=== PATIENT | female | born 1970 | race Caucasian/White ===

== ENCOUNTER 2017-03-05 23:45 | Inpatient (IN) | payer MEDICAID ==
[~2017-03-05] VITALS: Ht 154.9 cm; Wt 72.6 kg
[~2017-03-05 23:45] MED LIST: APRESOLINE50 MG PO; BENADRYL ALLERG25 M1 PO; CARVEDILOL6.25 M1 PO; HUMALOG100 U/ML; LASIX40 MG; MINOXIDIL2.5 MG PO; NEPHRO-VITE VITA1 EA PO; NOVOLIN R100 U/ML; SODIUM BICARBO650 MG PO; TESSALON PERLE100 MG PO; TOPROL XL25 MG PO; VIT B-6100 M1 PO; VYVANSE40 MG PO; ZOLPIDEM TARTRAT5 MG PO
[2017-03-06] VITALS (9 sets, daily range): BP systolic 134–178; BP diastolic 60–75
[2017-03-06] MEDS ORDERED: NEU300 PO (01:48)
[2017-03-06] MEDS ORDERED: NOR10 PO (01:49)
[2017-03-06] MEDS ORDERED: PHOSLO667 MG PO (01:49)
[2017-03-06] MEDS ORDERED: HYDRALAZINE HCL25 MG PO (01:49)
[2017-03-06] MEDS ORDERED: LIPI20 PO (01:49)
[2017-03-06] MEDS ORDERED: LISINOPRIL40 MG PO (01:50)
[2017-03-06] MEDS ORDERED: LASIX40 MG PO (01:50)
[2017-03-06] MEDS ORDERED: NEPHRO-VITE VITA1 EA PO (01:51)
[2017-03-06] MEDS ORDERED: OMEPRAZOLE40 M1 PO (01:51)
[2017-03-06 02:43] LABS: PLATELET COUNT 254 x10^3mcL (130-400)
[2017-03-06 02:44] LABS: BASOPHIL % 2.1 % (0-2)
[2017-03-06 02:56] LABS: BILIRUBIN TOTAL 0.28 mg/dL (0.20-1.00); CALCIUM 9.2 mg/dL (8.5-10.1); CARBON DIOXIDE 27.4 mmol/L (21-32); POTASSIUM SERUM 4.1 mmol/L (3.5-5.1)
[2017-03-06 02:58] LABS: ALBUMIN 3.2 g/dL (3.4-5.0); CHOLESTEROL/HDL RATIO 3.4; MAGNESIUM 2.5 mg/dL (1.8-2.4); PHOSPHOROUS 3.7 mg/dL (2.5-4.9); TOTAL PROTEIN, SERUM 9.6 g/dL (6.4-8.2)
[2017-03-06 02:59] LABS: CREATININE SERUM 4.8 mg/dL (0.6-1.0)
[2017-03-06 03:08] LABS: T3 TOTAL 0.73 ng/mL
[2017-03-06 03:22] LABS: FREE THYROXINE INDEX 3.1 ug/dL (1.4-4.5)
[2017-03-06 03:55] LABS: FREE T4 1.02 ng/dL (0.76-1.46)
[2017-03-06 08:40] LABS: BASOPHIL % 0.4 % (0-2); PLATELET COUNT 229 x10^3mcL (130-400); RED CELL DISTRIBUTION WIDTH 15.4 % (11.5-14.5)
[2017-03-06 09:00] LABS: CALCIUM 8.8 mg/dL (8.5-10.1); CARBON DIOXIDE 28.8 mmol/L (21-32); MAGNESIUM 2.4 mg/dL (1.8-2.4); POTASSIUM SERUM 4.3 mmol/L (3.5-5.1)
[2017-03-07 05:44] VITALS: BP 126/55
[2017-03-07 06:49] LABS: BASOPHIL % 0.4 % (0-2); PLATELET COUNT 218 x10^3mcL (130-400)
[2017-03-07 07:05] LABS: RED CELL DISTRIBUTION WIDTH 15.1 % (11.5-14.5)
[2017-03-07 07:09] LABS: CALCIUM 8.3 mg/dL (8.5-10.1); CARBON DIOXIDE 28.7 mmol/L (21-32); CREATININE SERUM 3.8 mg/dL (0.6-1.0); POTASSIUM SERUM 3.8 mmol/L (3.5-5.1)
[2017-03-07 07:55] VITALS: BP 164/73
[2017-03-07 09:32] VITALS: BP 173/75
[2017-03-07 12:56] VITALS: BP 130/69
[2017-03-07 17:40] VITALS: BP 131/68
[2017-03-07 21:05] VITALS: BP 144/61
[2017-03-08 05:31] VITALS: BP 152/64
[2017-03-08 07:36] LABS: CALCIUM 7.9 mg/dL (8.5-10.1); CARBON DIOXIDE 25.6 mmol/L (21-32); POTASSIUM SERUM 3.9 mmol/L (3.5-5.1)
[2017-03-08 07:54] VITALS: BP 134/78
[2017-03-08 08:02] LABS: CREATININE SERUM 5.8 mg/dL (0.6-1.0)
[2017-03-08 13:58] VITALS: BP 141/76
[2017-03-08 17:08] VITALS: BP 148/62
[2017-03-08 21:36] VITALS: BP 146/83
[2017-03-09 05:50] VITALS: BP 157/68
[2017-03-09 07:13] LABS: CALCIUM 8.1 mg/dL (8.5-10.1); CARBON DIOXIDE 28.2 mmol/L (21-32); CREATININE SERUM 3.8 mg/dL (0.6-1.0); POTASSIUM SERUM 3.6 mmol/L (3.5-5.1)
[2017-03-09 09:20] VITALS: BP 122/56
[2017-03-09] MEDS ORDERED: TYL325 PO (14:14)
[2017-03-09 14:28] VITALS: BP 122/56
[2017-03-09 16:33] VITALS: BP 122/56
== END 2017-03-09 15:45 | disposition home or self-care (01) | DRG 82 ==
LOC: ED 23:45 → DU 03-06 02:20 → MU 03-09 00:06
PROVIDERS: Emergency Medicine; ADMIT Family Medicine
DX: E11.3593 Type 2 diabetes mellitus with proliferative diabetic retinopathy without macular edema, bilateral (principal); N17.0 Acute kidney failure with tubular necrosis; I12.0 Hypertensive chronic kidney disease with stage 5 chronic kidney disease or end stage renal disease; N18.6 End stage renal disease; D68.69 Other thrombophilia; E11.65 Type 2 diabetes mellitus with hyperglycemia; H33.22 Serous retinal detachment, left eye; E78.1 Pure hyperglyceridemia; E03.9 Hypothyroidism, unspecified; D63.1 Anemia in chronic kidney disease; R74.0 Nonspecific elevation of levels of transaminase and lactic acid dehydrogenase [LDH]; H54.8 Legal blindness, as defined in USA; F17.200 Nicotine dependence, unspecified, uncomplicated; Z68.30 Body mass index [BMI] 30.0-30.9, adult; Z86.73 Personal history of transient ischemic attack (TIA), and cerebral infarction without residual deficits; Z99.2 Dependence on renal dialysis; Z79.4 Long term (current) use of insulin
CPT/HCPCS: 82962; 83880; 84439; J1815; J2270; J2405; J7030; J7613; Q0092

== ENCOUNTER 2017-04-27 16:25 | Inpatient (IN) | payer MEDICAID ==
[~2017-04-27] VITALS: Ht 157.5 cm; Wt 68.9 kg
[~2017-04-27 16:25] MED LIST changes: +HYDRALAZINE HCL25 MG PO; +LASIX40 MG PO; +LIPI20 PO; +LISINOPRIL40 MG PO; +NEU300 PO; +NOR10 PO; +OMEPRAZOLE40 M1 PO; +PHOSLO667 MG PO; +TYL325 PO
[2017-04-27 18:47] LABS: BASOPHIL % 0.5 % (0-2); PLATELET COUNT 288 x10^3mcL (130-400)
[2017-04-27 19:04] LABS: ALBUMIN 3.5 g/dL (3.4-5.0); BILIRUBIN TOTAL 0.4 mg/dL (0.20-1.00); CARBON DIOXIDE 23.8 mmol/L (21-32); POTASSIUM SERUM 3.9 mmol/L (3.5-5.1)
[2017-04-27 19:08] LABS: TOTAL PROTEIN, SERUM 9.3 g/dL (6.4-8.2)
[2017-04-27 19:09] LABS: CREATININE SERUM 4.6 mg/dL (0.6-1.0)
[2017-04-27 19:14] LABS: RED CELL DISTRIBUTION WIDTH 15.6 % (11.5-14.5)
[2017-04-27] MEDS ORDERED: CARVEDILOL3.125 M1 PO (20:53)
[2017-04-27] MEDS ORDERED: TEGRETOL200 MG PO (20:53)
[2017-04-27] MEDS ORDERED: GLUCOTROL5 MG PO (20:54)
[2017-04-27 22:03] LABS: CHOLESTEROL/HDL RATIO 2.6; MAGNESIUM 2.3 mg/dL (1.8-2.4); PHOSPHOROUS 1.7 mg/dL (2.5-4.9)
[2017-04-27 22:11] LABS: T3 TOTAL 0.91 ng/mL
[2017-04-27 22:24] LABS: FREE T4 1.3 ng/dL (0.76-1.46); FREE THYROXINE INDEX 3.8 ug/dL (1.4-4.5); T4(THYROXINE) 10.6 ug/dL (4.7-13.3)
[2017-04-27 22:27] VITALS: BP 182/69
[2017-04-28 05:47] VITALS: BP 154/41
[2017-04-28 10:00] VITALS: BP 196/60
[2017-04-28 12:59] VITALS: BP 187/67
[2017-04-28 17:12] VITALS: BP 173/52
[2017-04-28 21:51] VITALS: BP 142/52
[2017-04-28 22:00] VITALS: BP 156/47
[2017-04-29 06:10] VITALS: BP 159/46
[2017-04-29 07:23] LABS: BASOPHIL % 0.3 % (0-2); PLATELET COUNT 255 x10^3mcL (130-400)
[2017-04-29 07:24] LABS: RED CELL DISTRIBUTION WIDTH 16.6 % (11.5-14.5)
[2017-04-29 07:38] LABS: CALCIUM 8.8 mg/dL (8.5-10.1); CARBON DIOXIDE 30.4 mmol/L (21-32); CREATININE SERUM 3.6 mg/dL (0.6-1.0); MAGNESIUM 1.8 mg/dL (1.8-2.4); POTASSIUM SERUM 3.5 mmol/L (3.5-5.1)
[2017-04-29 08:10] LABS: AMYLASE 217 U/L (25-115); LIPASE 1960 IU/L (73-393)
[2017-04-29 10:10] VITALS: BP 149/34
[2017-04-29 14:00] VITALS: BP 158/52
[2017-04-29 17:45] VITALS: BP 132/65
[2017-04-29 21:56] VITALS: BP 154/51
[2017-04-30 05:15] VITALS: BP 146/50
[2017-04-30 06:49] LABS: BASOPHIL % 0.4 % (0-2); PLATELET COUNT 219 x10^3mcL (130-400)
[2017-04-30 06:59] LABS: CALCIUM 7.7 mg/dL (8.5-10.1); CARBON DIOXIDE 27.9 mmol/L (21-32); MAGNESIUM 1.8 mg/dL (1.8-2.4); PHOSPHOROUS 4.6 mg/dL (2.5-4.9); POTASSIUM SERUM 3.7 mmol/L (3.5-5.1)
[2017-04-30 07:11] LABS: RED CELL DISTRIBUTION WIDTH 16.5 % (11.5-14.5)
[2017-04-30 10:58] VITALS: BP 136/59
[2017-04-30 15:10] VITALS: BP 159/67
[2017-04-30 17:39] VITALS: BP 161/60
[2017-04-30 21:25] VITALS: BP 153/72
[2017-04-30] MEDS ORDERED: BETIMOL5 M1 OD (22:08)
[2017-04-30] MEDS ORDERED: ALPHAGAN P5 M1 OS (22:08)
[2017-04-30] MEDS ORDERED: PREDNISOLONE ACE5 ML OS (22:11)
[2017-04-30] MEDS ORDERED: ISOPTO ATROPINE5 ML OD (22:11)
[2017-04-30] MEDS ORDERED: DORZOLAMIDE HYD10 ML OS (22:12)
[2017-04-30] MEDS ORDERED: BETIMOL5 M1 OS (22:14)
[2017-04-30] MEDS ORDERED: ISOPTO ATROPINE5 ML OS (22:15)
[2017-05-01 05:23] VITALS: BP 128/56
[2017-05-01 07:30] LABS: BASOPHIL % 0.7 % (0-2); PLATELET COUNT 220 x10^3mcL (130-400)
[2017-05-01 07:32] LABS: RED CELL DISTRIBUTION WIDTH 16.8 % (11.5-14.5)
[2017-05-01 07:39] LABS: CALCIUM 7.5 mg/dL (8.5-10.1); CARBON DIOXIDE 27.3 mmol/L (21-32); CREATININE SERUM 3.7 mg/dL (0.6-1.0); MAGNESIUM 1.6 mg/dL (1.8-2.4); POTASSIUM SERUM 3.1 mmol/L (3.5-5.1)
[2017-05-01 10:37] VITALS: BP 151/48
[2017-05-01 14:44] VITALS: BP 154/45
[2017-05-01 18:14] VITALS: BP 114/88
[2017-05-01 22:01] VITALS: BP 147/42
[2017-05-02 05:30] VITALS: BP 122/45
[2017-05-02 06:37] LABS: BASOPHIL % 0.4 % (0-2); PLATELET COUNT 223 x10^3mcL (130-400)
[2017-05-02 06:44] LABS: CALCIUM 8.6 mg/dL (8.5-10.1); CARBON DIOXIDE 29.5 mmol/L (21-32); CREATININE SERUM 3.1 mg/dL (0.6-1.0); MAGNESIUM 2.2 mg/dL (1.8-2.4); PHOSPHOROUS 2.7 mg/dL (2.5-4.9); POTASSIUM SERUM 3.5 mmol/L (3.5-5.1)
[2017-05-02 06:50] LABS: RED CELL DISTRIBUTION WIDTH 16.8 % (11.5-14.5)
[2017-05-02 09:30] VITALS: BP 150/39
[2017-05-02 14:28] VITALS: BP 171/41
[2017-05-02 18:28] VITALS: BP 199/55
[2017-05-02 21:04] VITALS: BP 158/67
[2017-05-03 05:19] VITALS: BP 112/47
[2017-05-03 06:17] LABS: BASOPHIL % 0.8 % (0-2); PLATELET COUNT 217 x10^3mcL (130-400)
[2017-05-03 06:41] LABS: RED CELL DISTRIBUTION WIDTH 16.5 % (11.5-14.5)
[2017-05-03 07:02] LABS: CALCIUM 8.6 mg/dL (8.5-10.1); MAGNESIUM 2.4 mg/dL (1.8-2.4); PHOSPHOROUS 3.8 mg/dL (2.5-4.9); POTASSIUM SERUM 4.2 mmol/L (3.5-5.1)
[2017-05-03 07:32] LABS: CREATININE SERUM 4.5 mg/dL (0.6-1.0)
[2017-05-03 16:30] LABS: BASOPHIL % 0.2 % (0-2); PLATELET COUNT 229 x10^3mcL (130-400)
[2017-05-03 16:34] LABS: RED CELL DISTRIBUTION WIDTH 16.1 % (11.5-14.5)
[2017-05-03 18:22] VITALS: BP 150/60
[2017-05-03 22:37] VITALS: Ht 157.5 cm; Wt 68.9 kg
[2017-05-03 23:11] VITALS: BP 139/58
[2017-05-04 06:08] VITALS: BP 130/101
[2017-05-04 06:15] LABS: CALCIUM 6.9 mg/dL (8.5-10.1); CARBON DIOXIDE 25.8 mmol/L (21-32); CREATININE SERUM 2.9 mg/dL (0.6-1.0); MAGNESIUM 1.5 mg/dL (1.8-2.4); PHOSPHOROUS 2.5 mg/dL (2.5-4.9)
[2017-05-04 06:18] LABS: POTASSIUM SERUM 2.5 mmol/L (3.5-5.1)
[2017-05-04 06:51] VITALS: BP 139/46
[2017-05-04 07:08] LABS: BASOPHIL % 0.3 % (0-2); PLATELET COUNT 189 x10^3mcL (130-400)
[2017-05-04 07:10] LABS: RED CELL DISTRIBUTION WIDTH 16.8 % (11.5-14.5)
[2017-05-04 10:09] VITALS: BP 161/43
[2017-05-04 14:10] VITALS: BP 136/50
[2017-05-04 15:44] VITALS: BP 136/50
== END 2017-05-04 16:30 | disposition home health service (06) | DRG 282 ==
LOC: ED 16:25 → DU 20:42
PROVIDERS: Emergency Medicine Emergency Medical Services; Family Medicine Sports Medicine; ADMIT Family Medicine
PROC: 0HB6XZZ Excision of Back Skin, External Approach (ICD-10-PCS; principal; 2017-05-01)
DX: K85.90 Acute pancreatitis without necrosis or infection, unspecified (principal); N17.0 Acute kidney failure with tubular necrosis; I50.43 Acute on chronic combined systolic (congestive) and diastolic (congestive) heart failure; L89.153 Pressure ulcer of sacral region, stage 3; N18.6 End stage renal disease; D68.69 Other thrombophilia; E11.51 Type 2 diabetes mellitus with diabetic peripheral angiopathy without gangrene; E87.8 Other disorders of electrolyte and fluid balance, not elsewhere classified; I13.2 Hypertensive heart and chronic kidney disease with heart failure and with stage 5 chronic kidney disease, or end stage renal disease; E83.51 Hypocalcemia; E87.1 Hypo-osmolality and hyponatremia; K74.60 Unspecified cirrhosis of liver; H54.8 Legal blindness, as defined in USA; N90.7 Vulvar cyst; N83.202 Unspecified ovarian cyst, left side; D64.9 Anemia, unspecified; E83.39 Other disorders of phosphorus metabolism; E78.5 Hyperlipidemia, unspecified; Z99.2 Dependence on renal dialysis; Z68.30 Body mass index [BMI] 30.0-30.9, adult; Z86.14 Personal history of Methicillin resistant Staphylococcus aureus infection
CPT/HCPCS: 82962; 83880; 84439; 94150; J1885; J2001; J2270; J2405; J2550; J3475; J3480; J3490; J7030; J7042; J8597; Q0092; Q9967

== ENCOUNTER 2017-05-14 14:59 | Emergency (ER) | payer MEDICAID ==
[~2017-05-14 14:59] MED LIST changes: +ALPHAGAN P5 M1 OS; +BETIMOL5 M1 OD; +BETIMOL5 M1 OS; +CARVEDILOL3.125 M1 PO; +DORZOLAMIDE HYD10 ML OS; +GLUCOTROL5 MG PO; +ISOPTO ATROPINE5 ML OD; +ISOPTO ATROPINE5 ML OS; +PREDNISOLONE ACE5 ML OS; +TEGRETOL200 MG PO
[2017-05-14 17:09] LABS: BASOPHIL % 0.2 % (0-2); PLATELET COUNT 264 x10^3mcL (130-400)
[2017-05-14 17:15] LABS: RED CELL DISTRIBUTION WIDTH 16.5 % (11.5-14.5)
[2017-05-14 17:16] LABS: ALBUMIN 3.3 g/dL (3.4-5.0); BILIRUBIN TOTAL 0.43 mg/dL (0.20-1.00); CALCIUM 9.2 mg/dL (8.5-10.1); CARBON DIOXIDE 28.2 mmol/L (21-32)
[2017-05-14 18:59] VITALS: BP 215/93
== END 2017-05-14 18:59 | disposition home or self-care (01) ==
LOC: ED 14:59
PROVIDERS: Emergency Medicine
DX: K85.90 Acute pancreatitis without necrosis or infection, unspecified (principal); I12.0 Hypertensive chronic kidney disease with stage 5 chronic kidney disease or end stage renal disease; E11.22 Type 2 diabetes mellitus with diabetic chronic kidney disease; N18.6 End stage renal disease; Z79.899 Other long term (current) drug therapy; Z90.49 Acquired absence of other specified parts of digestive tract
CPT/HCPCS: J3010; Q0092; Q0162

== ENCOUNTER 2018-03-18 19:01 | Inpatient (IN) | payer MEDICAID ==
[~2018-03-18] VITALS: Ht 154.9 cm; Wt 73.5 kg
[2018-03-18 19:06] VITALS: Ht 154.9 cm; Wt 73.5 kg
[2018-03-18 20:34] LABS: BASOPHIL % 0.2 % (0-2); PLATELET COUNT 276 x10^3mcL (130-400)
[2018-03-18 20:49] LABS: BILIRUBIN TOTAL 0.44 mg/dL (0.20-1.00); CARBON DIOXIDE 27.3 mmol/L (21-32); POTASSIUM SERUM 4.7 mmol/L (3.5-5.1)
[2018-03-18 21:07] LABS: ALBUMIN 3.1 g/dL (3.4-5.0); RED CELL DISTRIBUTION WIDTH 15.6 % (11.5-14.5); TOTAL PROTEIN, SERUM 8.5 g/dL (6.4-8.2)
[2018-03-18 21:09] LABS: CREATININE SERUM 7.3 mg/dL (0.6-1.0)
[2018-03-18 23:54] VITALS: BP 169/56
[2018-03-19 05:12] VITALS: BP 152/43
[2018-03-19 06:35] LABS: CALCIUM 8.9 mg/dL (8.5-10.1); CARBON DIOXIDE 25.4 mmol/L (21-32); POTASSIUM SERUM 4.6 mmol/L (3.5-5.1)
[2018-03-19 06:38] LABS: BASOPHIL % 0.5 % (0-2); PLATELET COUNT 270 x10^3mcL (130-400)
[2018-03-19 06:56] LABS: RED CELL DISTRIBUTION WIDTH 15.7 % (11.5-14.5)
[2018-03-19 07:24] LABS: CREATININE SERUM 7.8 mg/dL (0.6-1.0)
[2018-03-19 08:30] VITALS: BP 155/52
[2018-03-19 13:04] VITALS: BP 160/60
[2018-03-19 16:10] VITALS: BP 165/74
[2018-03-19 20:44] VITALS: BP 169/59
[2018-03-19 22:00] VITALS: BP 140/59
[2018-03-20 05:27] VITALS: BP 153/63
[2018-03-20 13:05] VITALS: BP 176/63
[2018-03-20 17:28] VITALS: BP 139/63
[2018-03-20 20:31] VITALS: BP 150/60
[2018-03-21 05:01] VITALS: BP 145/40
[2018-03-21 06:55] LABS: CALCIUM 8.3 mg/dL (8.5-10.1); POTASSIUM SERUM 4.2 mmol/L (3.5-5.1)
[2018-03-21 07:05] LABS: CREATININE SERUM 6.8 mg/dL (0.6-1.0)
[2018-03-21 07:12] LABS: BASOPHIL % 0.5 % (0-2); PLATELET COUNT 236 x10^3mcL (130-400)
[2018-03-21 07:22] LABS: RED CELL DISTRIBUTION WIDTH 15.3 % (11.5-14.5)
[2018-03-21 08:53] VITALS: BP 149/44
[2018-03-21 12:38] VITALS: BP 144/50
[2018-03-21 17:06] VITALS: BP 128/29
[2018-03-21 18:09] VITALS: BP 128/29
== END 2018-03-21 20:14 | disposition home or self-care (01) | DRG 246 ==
LOC: ED 19:01 → DU 23:02
PROVIDERS: Emergency Medicine; Internal Medicine; Internal Medicine Gastroenterology
PROC: 0DBM8ZX Excision of Descending Colon, Via Natural or Artificial Opening Endoscopic, Diagnostic (ICD-10-PCS; principal; 2018-03-20 07:30)
DX: K55.9 Vascular disorder of intestine, unspecified (principal); E11.22 Type 2 diabetes mellitus with diabetic chronic kidney disease; I12.0 Hypertensive chronic kidney disease with stage 5 chronic kidney disease or end stage renal disease; E87.1 Hypo-osmolality and hyponatremia; E83.39 Other disorders of phosphorus metabolism; K56.7 Ileus, unspecified; N18.6 End stage renal disease; K92.1 Melena; K59.00 Constipation, unspecified; H54.8 Legal blindness, as defined in USA; I25.10 Atherosclerotic heart disease of native coronary artery without angina pectoris; D64.9 Anemia, unspecified; Z68.30 Body mass index [BMI] 30.0-30.9, adult; Z99.2 Dependence on renal dialysis
CPT/HCPCS: 45378; J1200; J1610; J1885; J2250; J2270; J2310; J2765; J3010; J3490; J7030; Q0092

== ENCOUNTER 2018-11-19 16:51 | Inpatient (IN) | payer MEDICAID ==
[~2018-11-19] VITALS: Ht 160 cm; Wt 83.9 kg
[2018-11-19 17:15] VITALS: Ht 160 cm; Wt 83.9 kg
--- NOTE | 2018-11-19 17:30 | NUR ---
PT HERE FOR CHEST PAIN/EPIGASTRIC PAIN 05/08 . CHEST PAIN SINCE 1500 TODAY WITHN ABD PAIN FOR APPROX 1 WEEK. PT ARRIVES ALSO WITH SOB AND LOW 02 SAT. PLACED ON 02 2L N/C FOR 02 SAT 94%. PT HAS EXTENSIVE HX. ARRIVES ALERT AND ORIENTED WITH LIGHT DISTRESS NOTED. CONNECTED TO [facility] HISTORY PROFESSOR AND EKG PERFORMED IN TRIAGE. AWAITING MD GRACIA
--- NOTE | 2018-11-19 17:45 | NUR ---
DR VACA SAW PT FOR EVAL
--- NOTE | 2018-11-19 17:49 | NUR ---
XRAY AT BEDSIDE
[2018-11-19 18:04] LABS: BASOPHIL % 0.3 % (0-2); PLATELET COUNT 150 x10^3mcL (130-400)
[2018-11-19 18:07] LABS: RED CELL DISTRIBUTION WIDTH 17.8 % (11.5-14.5)
[2018-11-19 18:16] LABS: CALCIUM 9.3 mg/dL (8.5-10.1); CARBON DIOXIDE 32.2 mmol/L (21-32); CREATININE SERUM 3.3 mg/dL (0.6-1.0); POTASSIUM SERUM 3.4 mmol/L (3.5-5.1)
[2018-11-19 18:22] LABS: ALBUMIN 3.5 g/dL (3.4-5.0); BILIRUBIN TOTAL 0.4 mg/dL (0.20-1.00); TOTAL PROTEIN, SERUM 8.7 g/dL (6.4-8.2)
--- NOTE | 2018-11-19 19:07 | NUR ---
REPORT GIVEN TO SVETLANA GRAPHIC ILLUSTRATOR GARCIA
--- NOTE | 2018-11-19 19:17 | NUR ---
PT LAYING IN BED, SLEEPING. PT EASILY AROUSABLE, NO S/S OF DISTRESS.
--- NOTE | 2018-11-19 19:36 | NUR ---
DR. VACA AT BEDSIDE DISCUSSING PLAN OF CARE.
[2018-11-19] MEDS ORDERED: GABAPENTIN100 M2 PO (19:55)
[2018-11-19] MEDS ORDERED: CALCIUM ACETAT667 M2 PO (19:56)
[2018-11-19] MEDS ORDERED: ACTIGALL300 MG PO (19:57)
[2018-11-19] MEDS ORDERED: METOCLOPRAMIDE H5 M1 PO (19:59)
[2018-11-19] MEDS ORDERED: ONDANSETRON4 M3 PO (19:59)
[2018-11-19] MEDS ORDERED: VP-VITE RX TAB1 EACH PO (20:00)
[2018-11-19] MEDS ORDERED: VITAMIN D50000 I4 PO (20:01)
[2018-11-19] MEDS ORDERED: DOK COLACE100 MG PO (20:02)
[2018-11-19] MEDS ORDERED: FLUVASTATIN40 MG PO (20:03)
[2018-11-19] MEDS ORDERED: ASPIR 8181 MG PO (20:04)
--- NOTE | 2018-11-19 20:25 | NUR ---
REPORT GIVEN TO GARCIA VEGA.
[2018-11-19 21:24] VITALS: BP 176/70
--- NOTE | 2018-11-19 21:41 | NUR ---
RECEIVED PT FROM ER. PT ADMIT FOR ACUTE PANCREATITIS, PT IS A/O X4, VERBAL RESPONSIVE, BLIND BOTH EYES. LUNG SOUND DIM BETZY BASE, PT IS ON 2L/MIN O2 VIA NC. PO2 97%, DENY ANY SOB AT THIS TIME, PT IS ON TELE 15, NSR, DENY ANY CHEST PAIN OR DISCOMFORT, BOWEL SOUND PRESENT ALL 4 QUADRANS, C/O ABD PAIN AT UPPER QUADRANTS, DENY ANY N/V AT THIS MOMENT, PEDAL PULSE PRESENT BOTH FEET, TRACE EDEMA BLE. AV SHUNT AT AMALIA, B/T PRESENT WELL, IV AT LEFT AC, NO LEAKING, NO INFILTRATION. ALL ADLS ASSIST, ALL NEED MET, CALL LIGHT IN REACH, WILL CONTINUE TO MONITOR.
--- NOTE | 2018-11-19 22:15 | NUR ---
LATE ENTRY: ZOSYN 3.375MG IVPB AND PEPCID IV GIVEN BY ER NURSE. MEDICATIONS WERE ORDERED BY ER DOCTOR.
--- NOTE | 2018-11-20 02:07 | NUR ---
PT. HAVING C/O NAUSEA AND SOME VOMITING. PRN ZOFRAN GIVEN. WILL CONTINUE TO MONITOR.
[2018-11-20 06:01] VITALS: BP 157/76
[2018-11-20 06:03] LABS: BASOPHIL % 0.2 % (0-2); PLATELET COUNT 145 x10^3mcL (130-400)
[2018-11-20 06:21] LABS: CARBON DIOXIDE 29.1 mmol/L (21-32); CREATININE SERUM 3.9 mg/dL (0.6-1.0); POTASSIUM SERUM 3.5 mmol/L (3.5-5.1)
--- NOTE | 2018-11-20 06:28 | NUR ---
PT. C/O NAUSEA. DENIES ABD. PAIN. PRN ZOFRAN GIVEN. IV SITE REMAINS INTACT. WILL ENDORSE PT. CARE TO INCOMING NURSE.
[2018-11-20 06:32] LABS: RED CELL DISTRIBUTION WIDTH 17.6 % (11.5-14.5)
--- NOTE | 2018-11-20 07:00 | NUR ---
RECIEVED PT FROM WORM PACKER NURSE. PT SLEEPING IN BED, AROUSABLE, RESP EVEN AND UNLABORED ON NC AT 2L/MIN. NO ACUTE DISTRESS NOTED. ON TELE 17 SHOWING NSR, HR: 61. IV SALINE LOCK TO LFA W/ NO ERYTHEMA. BED IN LOWEST POSITION AND CALL LIGHT WITHIN REACH. WILL CONTINUE TO MONITOR.
[2018-11-20 09:38] VITALS: BP 187/69
[2018-11-20 12:17] VITALS: BP 167/77
--- NOTE | 2018-11-20 12:41 | NUR ---
PT SITTING AT EDGE OF BED HAVING LUNCH, AAOX4. DENIES ABD PAIN OR NAUSEA AT THIS TIME. BED IN LOWEST POSITION AND CALL LIGHT WITHIN REACH. FAMILY MEMBERS AT BEDSIDE. WILL CONTINUE TO MONITOR.
[2018-11-20 16:59] VITALS: BP 177/74
--- NOTE | 2018-11-20 17:35 | NUR ---
PT IN BED HAVING DINNER. AAOX4. DENIES ABD PAIN OR NAUSEA AT THIS TIME. RESP EVEN AND UNLABORED ON NC AT 2L/MIN, EQUAL CHEST EXPANSION. IV SALINE LOCK TO RFA W/ NO ERYTHEMA. BED IN LOWEST POSITION AND CALL LIGHT WITHIN REACH. WILL ENDORSE TO ONCOMING NURSE.
[2018-11-20 19:50] VITALS: BP 152/55
--- NOTE | 2018-11-20 20:00 | NUR ---
RECEIVED PT IN BED, ALERT AND ORIENTED. [place]ILL[place] AND BLINDNESS, ABLE TO VERBALIZE NEEDS AND FOLLOW COMMANDS. DENIES HEADACHE/DIZZINESS. RESP. EVEN AND UNLABORED. 02 AT 2L/MIN VIA NC, SAT. WELL, NO ACUTE DISTRESS NOTED. SR ON THE MONITOR, DENIES CP OR PRESSURE. HL TO LFA, INTACT AND PATENT. AV SHUNT TO AMALIA, WITH GOOD BRUIT/THRILL. HEMODIALYSIS PT. ASSISTED WITH HS CARE. CALL LIGHT WITHIN REACH, INSTRUCTED TO CALL FOR ASSIST. IF NEEDED. PT VERBALIZED UNDERSTANDING.WILL CONTINUE TO MONITOR.
--- NOTE | 2018-11-20 23:12 | NUR ---
REQUESTED FOR SLEEPING MED, MEDICATED WITH AMBIEN PO ORDERED. WILL CONTINUE TO MONITOR.
--- NOTE | 2018-11-21 01:51 | NUR ---
RESTING QUIETLY IN BED, WITH YES CLOSED, APPEARS ASLEEP. EASILY AROUSABLE. RESP. EVEN AND UNLABORED. [address]NO ACUTE DISTRESS NOTED. CALL LIGHT WITHIN REACH. WILL CONTINUE TO MONITOR.
[2018-11-21 04:58] VITALS: BP 148/51
--- NOTE | 2018-11-21 05:57 | NUR ---
CHECKED AT FREQUENT INTERVALS DURING THE NIGHT. SLEPT WELL. NO COMPLAINTS NOTED. AFEBRILE AND VITAL SIGNS STABLE. RESP. EVEN AND UNLABORED.[address], NO ACUTE DISTRESS NOTED. DENIES CP OR PRESSURE. KEPT COMFORTABLE AND ALL NEEDS ATTENDED TO. WILL CONTINUE TO MONITOR.
[2018-11-21 06:59] LABS: BASOPHIL % 1.7 % (0-2); PLATELET COUNT 137 x10^3mcL (130-400)
--- NOTE | 2018-11-21 07:05 | NUR ---
RECEIVED PT FROM TRANSFORMATION CONSULTANT NURSE. PT IN BED SLEEPING, AROUSABLE, RESP EVEN AND UNLABORED ON NC 2L/MIN. NO ACUTE DISTRESS NOTED. ON TELE 15 SHOWING SINUS BRADYCARDIA, HR:55. IV SALINE LOCK TO LFA W/ NO ERYTHEMA. BED IN LOWEST POSITION AND CALL LIGHT WITHIN REACH. WILL CONTINUE TO MONITOR.
[2018-11-21 07:19] LABS: RED CELL DISTRIBUTION WIDTH 17.7 % (11.5-14.5)
[2018-11-21 07:33] LABS: CREATININE SERUM 5.1 mg/dL (0.6-1.0)
--- NOTE | 2018-11-21 08:09 | NUR ---
DR. AYALA NOTIFED FOR DIALYSIS ORDERS BY NURSE SALGADO. CONSENT FOR DIALYSIS OBTAINED. DIALYSIS STARTED AT THIS TIME.
[2018-11-21 09:07] VITALS: BP 125/69
--- NOTE | 2018-11-21 11:00 | NUR ---
DIALYSIS COMPLETED AT THIS TIME. 3500ML OUT. PT IN NO ACUTE DISTRESS. WILL CONTINUE TO MONITOR.
[2018-11-21 12:20] VITALS: BP 140/76
--- NOTE | 2018-11-21 15:30 | NUR ---
PT SITTING IN BED HAVING DINNER. AAOX4, NO ACUTE DISTRESS NOTED. DENIES ABD PAIN, NAUSEA OR SOB AT THIS TIME. RESP EVEN AND UNLABORED ON NC 2L/MIN. IV SALINE LOCK TO LFA W/ NO ERYTHEMA OR EDEMA. BED IN LOWEST POSITION AND CALL LIGHT WITHIN RECH. FAMILY MEMBERS AT BEDSIDE. WILL ENDORSE TO ONCOMING NURSE.
--- NOTE | 2018-11-21 15:37 | NUR ---
PHYSICAL THERAPY NOTE ATTEMPTED FOR SCHEDULED PHYSICAL THERAPY TREATMENT SESSION. PATIENT RECEIVED DIALYSIS TREATMENT. THERAPY SESSION POSTPONED.
[2018-11-21 15:41] VITALS: BP 154/68
--- NOTE | 2018-11-21 20:00 | NUR ---
RECEIVED PT IN BED, ALERT AND ORIENTED.[place], ABLE TO VERBALIZE NEEDS AND FOLLOWS COMMANDS. DENIES HEADACHE/DIZZINESS. RESP. EVEN AND UNLABORED. 02 AT 2L/MIN VIA NC, DENIES SOB. NO ACUTE DISTRESS NOTED. HL TO LFA, INTACT AND PATENT. ABD. SOFT, NON TENDERED, BS ACTIVE, NO N/V NOTED. AV SHUNT TO AMALIA, INTACT WITH GOOD BRUIT/THRILL. ASSISTED WITH HS CARE. CALL LIGHT WITHIN REACH.WILL CONTINUE TO MONITOR.
[2018-11-21 20:53] VITALS: BP 148/65
--- NOTE | 2018-11-22 01:08 | NUR ---
AWAKE, INCONT. OF MED. SOFT BM, CLEANED AND KEPT COMFORTABLE. DENIES PAIN OR ANY DISCOMFORT AT THIS TIME. CALL LIGHT WITHIN REACH. WILL CONTINUE TO MONITOR.
--- NOTE | 2018-11-22 04:16 | NUR ---
ASLEEP, EASILY AROUSABLE. RESP. EVEN AND UNLABORED. [address], NO DISTRESS NOTED.WILL CONTINUE TO MONITOR.
[2018-11-22 05:51] VITALS: BP 156/64
--- NOTE | 2018-11-22 05:52 | NUR ---
AFEBRILE AND VITAL SIGNS STABLE. DENIES CP OR ANY DISCOMFORT AT THIS TIME. RESP. EVEN AND UNLABORED. [address], NO ACUTE DISTRESS NOTED.HAD TOTAL OF X2 SOFT BM. ANURIC. HEMODIALYSIS PT. KEPT COMFORTABLE AND ALL NEEDS ATTENDED TO.WILL CONTINUE TO MONITOR.
--- NOTE | 2018-11-22 07:19 | NUR ---
ASSUMED CARE OF PATIENT. SEEN RESTING IN BED WITH UNLABORED RESPIRATIONS. WILL CONTINUE TO MONITOR.
--- NOTE | 2018-11-22 09:23 | NUR ---
PATIENT ALERT AND ORIENTED X4. COMPLAINING OF 9/10 PAIN, NORCO PRN PROVIDED. 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 HARD OF HEARING, UTILIZES HEARING AID. ON TELEMONITOR 15, NSR. PULSES PALPABLE BILATERALLY, TRACE BLE. LUNG SOUNDS DIMINISHED BILATERALLY, ON 2L NC. BOWEL SOUNDS PRSENT IN ALL 4 QUADRANTS. AV SHUNT ON RUE. GENERALIZED WEAKNESS. HEALED ULCER TO COCCYC. IV ON LFA INTACT WITH NO RENDESS. NONSKID SOCKS IN PLACE. BED LOCKED AND IN LOWEST POSITION. CALL LIGHT WITHIN REACH.
--- NOTE | 2018-11-22 09:27 | NUR ---
JERILYN NOTIFIED THIS RN OF PENDING EYEDROP MEDICATIONS. CALLED, NOTIFIED TO CONTINUE AND APPROVE MEDICATIONS. ASKED PATIENT IF SHE HAD MEDICATIONS AT HOME FOR HER TO BRING, STATES SHE HAS NOT BEEN USING HER EYEDROPS FOR THE PAST MONTH. NOTIFIED, PATIENT TO BE D/C TODAY, NO ISSUE. JERILYN MADE AWARE AND CANCELLED ORDERS.
[2018-11-22 10:14] VITALS: BP 161/79
[2018-11-22 10:15] VITALS: BP 161/79
--- NOTE | 2018-11-22 10:26 | NUR ---
PATIENT SEEN IN ROOM TENDING TO ADL'S. NO NEW ISSUES.
--- NOTE | 2018-11-22 12:11 | NUR ---
PATIENT RECIEVED SHOWER CARE. IV REMOVED WITH CATHETER FULLY INTACT. AWAITING RIDE FOR DISCHARGE.
--- NOTE | 2018-11-22 14:32 | NUR ---
PATIENT DISCHARGED VIA WHEELCHAIR AND FAMILY AT SIDE. ALL BELONGINGS WITH PATIENT. NAME BANDS REMOVED. TELE MONITOR AND IV PREVIOUSLY REMOVED. PATIENT IN NO APPARENT DISTRESS OR PAIN DURING DISCHARGE.
--- NOTE | 2018-11-22 15:32 | NUR ---
PHYSICAL THERAPY NOTE ATTEMPTED FOR SCHEDULED PHYSICAL THERAPY TREATMENT SESSION. PT HAS BEEN DISCHARGED.
--- NOTE | 2018-11-22 15:40 | NUR ---
PHYSICAL THERAPY DAILY NOTES CO-SIGN All documentation done by the Tub Rider for 11/22/18 has been reviewed. I agree with the documentation. Reviewed/Co-Signed by: Lydia Barron PT Documentation Done by:FEI MIX [facility]
== END 2018-11-22 16:24 | disposition home or self-care (01) | DRG 282 ==
LOC: ED 16:51 → DU 19:49
PROVIDERS: Emergency Medicine; ADMIT Internal Medicine
DX: K85.90 Acute pancreatitis without necrosis or infection, unspecified (principal); E11.22 Type 2 diabetes mellitus with diabetic chronic kidney disease; I12.0 Hypertensive chronic kidney disease with stage 5 chronic kidney disease or end stage renal disease; E11.65 Type 2 diabetes mellitus with hyperglycemia; N18.6 End stage renal disease; F14.10 Cocaine abuse, uncomplicated; F12.10 Cannabis abuse, uncomplicated; Z99.2 Dependence on renal dialysis; Z68.30 Body mass index [BMI] 30.0-30.9, adult; Z79.84 Long term (current) use of oral hypoglycemic drugs
CPT/HCPCS: 74181; 82962; J2270; J2405; J2543; J2765; J3490; J7030; J7040; J8597; Q0092

== ENCOUNTER 2019-01-27 19:12 | Emergency (ER) | payer MEDICAID ==
[~2019-01-27 19:12] MED LIST changes: +ACTIGALL300 MG PO; +ASPIR 8181 MG PO; +CALCIUM ACETAT667 M2 PO; +DOK COLACE100 MG PO; +FLUVASTATIN40 MG PO; +GABAPENTIN100 M2 PO; +METOCLOPRAMIDE H5 M1 PO; +ONDANSETRON4 M3 PO; +VITAMIN D50000 I4 PO; +VP-VITE RX TAB1 EACH PO
[2019-01-27 19:39] VITALS: Ht 154.9 cm
[2019-01-27 22:00] VITALS: BP 131/33
== END 2019-01-27 22:00 | disposition home or self-care (01) ==
LOC: ED 19:12
DX: S82.55XA Nondisplaced fracture of medial malleolus of left tibia, initial encounter for closed fracture (principal); E11.22 Type 2 diabetes mellitus with diabetic chronic kidney disease; I12.0 Hypertensive chronic kidney disease with stage 5 chronic kidney disease or end stage renal disease; N18.6 End stage renal disease; Z99.2 Dependence on renal dialysis; Z90.49 Acquired absence of other specified parts of digestive tract; Z98.890 Other specified postprocedural states; W01.0XXA Fall on same level from slipping, tripping and stumbling without subsequent striking against object, initial encounter; Y93.89 Activity, other specified; Y92.89 Other specified places as the place of occurrence of the external cause; Y99.8 Other external cause status
CPT/HCPCS: Q0092